=== PATIENT | male | born 1935 | race Caucasian/White ===

== ENCOUNTER → 2016-10-01 | Outpatient (CLI) | payer OTHER | LOC: BMCIMAGING 08:53 | PROVIDERS: ATTEND Orthopaedic Surgery | DX: M25.552 Pain in left hip (principal) ==

== ENCOUNTER 2018-03-03 05:31 | Inpatient (IN) | payer OTHER ==
[2018-03-03] MEDS ORDERED: LR 1,000 ML IV ONE (05:38)
[2018-03-03] MEDS ORDERED: LIDOCAINE 1% 2 ML INJ ID PRN (05:38)
[2018-03-03] MEDS ORDERED: MUPIROCIN 2% 22 GM OINT ONE (06:35)
--- NOTE | 2018-03-03 07:04 | PDANEPAE ---
ANE History of Present Illness right sided parotid tumor, here for resection ANE Past Medical History - Cardiovascular History Hx Hypertension: Yes Hx Arrhythmias: No Hx Chest Pain: No Hx Coronary Artery / Peripheral Vascular Disease: No Hx CHF / Valvular Disease: No Hx Palpitations: No Cardiovascular History Comment: HYPERLIPIDEMIA - Pulmonary History Hx COPD: No Hx Asthma/Reactive Airway Disease: No Hx Recent Upper Respiratory Infection: No Hx Oxygen in Use at Home: No Hx Sleep Apnea: No Sleep Apnea Screening Result - Last Documented: Negative - Neurologic History Hx Cerebrovascular Accident: No Hx Seizures: No Hx Dementia: No - Endocrine History Hx Diabetes: No - Renal History Hx Renal Disorders: No Renal History Comment: KIDNEY STONES IN PAST - Liver History Hx Hepatic Disorders: No - Neurological & Psychiatric Hx Hx Neurological and Psychiatric Disorders: No - Cancer History Hx Cancer: No - Congenital Disorder History Hx Congenital Disorders: No - GI History Hx Gastrointestinal Disorders: Yes Gastrointestinal History Comment: ACID REFLUX - Other Health History Other Health History: NEG - Chronic Pain History Chronic Pain: No - Surgical History Prior Surgeries: 2010 TKA L. TONSILLECTOMY ANE Review of Systems Review of Systems: - Exercise capacity METS (RN): 4 METS ANE Patient History - Allergies Allergies/Adverse Reactions: No Known Allergies Allergy (Unverified 02/24/18 12:38) - Home Medications Home Medications: Amlodipine Besylate/Benazepril 02/24/18 [Last Taken 03/03/18 04:30] Aspirin 02/24/18 [Last Taken 02/24/18] Celebrex 02/24/18 [Last Taken 02/24/18] HCTZ (*) 02/24/18 [Last Taken 02/26/18] Herbals/Supplements -Info Only 02/24/18 [Last Taken 02/24/18] Lovaza 1 gm (*) 02/24/18 [Last Taken 02/26/18] Omeprazole 02/24/18 [Last Taken 03/03/18 04:30] Toprol Xl 02/24/18 [Last Taken 03/03/18 04:30] - NPO status NPO Since - Liquids (Date): 03/03/18 NPO Since - Liquids (Time): 04:55 NPO Since - Solids (Date): 03/02/18 NPO Since - Solids (Time): 21:30 - Smoking Hx Smoking Status: Former smoker - Family Anes Hx Family Hx Anesthesia Complications: NEG ANE Labs/Vital Signs - Vital Signs Blood Pressure: 129/71 Heart Rate: 70 Respiratory Rate: 12 O2 Sat (%): 99 Height: 165.1 cm Weight: 68.039 kg ANE Physical Exam - Airway Neck exam: decreased ROM Mallampati Score: Class 2 Mouth exam: normal dental/mouth exam - Pulmonary Pulmonary: no respiratory distress - Cardiovascular Cardiovascular: regular rate and rhythym - ASA Status ASA Status: III ANE Anesthesia Plan Anesthesia Plan: general endotracheal anesthesia
[2018-03-03] MEDS ORDERED: PROPOFOL 200 MG/20 ML VIAL ONE ×2 (07:07→12:13)
[2018-03-03] MEDS ORDERED: fentaNYL 250 MCG/5 ML INJ ONE (07:07)
[2018-03-03] MEDS ORDERED: RANITIDINE 50 MG/2 ML VIAL ONE (07:07)
[2018-03-03] MEDS ORDERED: ROCURONIUM 50 MG/5 ML VIAL ONE (07:07)
[2018-03-03] MEDS ORDERED: LIDOCAINE 2% 100 MG/5 ML SYR ONE (07:07)
[2018-03-03] MEDS ORDERED: ceFAZolin 2 GM/DEXTROSE 100 ML IV ONE (07:17)
--- NOTE | 2018-03-03 07:17 | PDHPUP ---
History & Physical Update H&P update statement: This history and physical update is based on an assessment of the patient which was completed after admission or registration (within 24 hours), but prior to the surgery/procedure. H&P update: H&P reviewed & patient examined (no change)
[2018-03-03] MEDS ORDERED: CEFAZOLIN 2 GM/DEXTROSE/100 ML BAG IV ONE (07:19)
[2018-03-03] MEDS ORDERED: LIDOCAINE HCL 160 MG/4 ML LTA KIT TP ONE (08:59)
[2018-03-03] MEDS ORDERED: HYDROmorphONE/DILAUDID 2 MG/ML INJ ONE (08:59)
[2018-03-03] MEDS ORDERED: PHENYLEPHRINE HCL 100 MCG/ML SYR ONE (08:59)
[2018-03-03] MEDS ORDERED: GLYCOPYRROLATE 0.2 MG/1 ML VIAL ONE (08:59)
[2018-03-03] MEDS ORDERED: ONDANSETRON 4 MG/2 ML VIAL IVP PRN ×2 (11:42→12:43)
[2018-03-03] MEDS ORDERED: oxyCODONE IR 5 MG TAB PO PRN (11:42)
[2018-03-03] MEDS ORDERED: LABETALOL HCL 5 MG/ML 20 ML MDV IVP PRN (11:42)
[2018-03-03] MEDS ORDERED: MEPERIDINE 25 MG/0.5 ML AMP IVP PRN (11:42)
[2018-03-03] MEDS ORDERED: LR 500 ML IV PRN (11:42)
[2018-03-03] MEDS ORDERED: NALOXONE HCL 0.4 MG/ML INJ IVP PRN (11:42)
[2018-03-03] MEDS ORDERED: fentaNYL 100 MCG/2 ML INJ IVP PRN (11:42)
[2018-03-03] MEDS ORDERED: fentaNYL 100 MCG/2 ML INJ ONE (12:27)
--- NOTE | 2018-03-03 12:43 | POSTOPPROG ---
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
[2018-03-03] MEDS ORDERED: ceFAZolin 0.5 GM in NS 50 ML IV SCH (14:00)
[2018-03-03] MEDS: D5W 1/2 NS W/ 20 KCl/L 1,000 ML IV SCH (14:32)
[2018-03-03] MEDS: ACETAMINOPHEN 325 MG TAB PO PRN (14:32)
[2018-03-03] MEDS: OXYCODONE/APAP 5/325 TAB PO PRN (16:29)
[2018-03-03] MEDS ORDERED: GABAPENTIN 250 MG/5 ML 30 ML BOTTLE PO SCH (21:00)
[2018-03-04] MEDS: D5W 1/2 NS W/ 20 KCl/L 1,000 ML IV SCH (04:01)
[2018-03-04] MEDS: OXYCODONE/APAP 5/325 TAB PO PRN (04:01)
[2018-03-04] MEDS ORDERED: MAGNESIUM HYDROXIDE 30 ML UDCUP PO PRN (06:53)
[2018-03-04] MEDS ORDERED: POLYETHYLENE GLYCOL 3350 17 GM PKT PO PRN (06:53)
[2018-03-04] MEDS ORDERED: BISACODYL 10 MG SUPP PR PRN (06:53)
[2018-03-04] MEDS ORDERED: LACTULOSE 20 GM/30 ML UDCUP PO PRN (06:53)
--- NOTE | 2018-03-04 07:54 | POSTANESTH ---
Post Anesthetic Evaluation Cardiovascular Status: Normal, Stable Respiratory Status: Normal, Stable Level of Consciousness/Mental Status: Can Participate in Eval Pain Control: Adequate, Prn Tx Ordered Nausea/Vomiting Control: Adequate, Prn Tx Ordered Complications Possibly Related to Anesthesia: None Noted (Sen this am in the step down obs unit in ICU. No reported events overnight. Doing well, no complaints. Talkative, no pain or nausea, eating and urinating w/o difficulty. Mild facial swelling on contralateral side. No questions)
[2018-03-04] MEDS: CALCIUM CARBONATE 500 MG TAB PO SCH (09:25)
[2018-03-04] MEDS: AMLODIPINE BESYLATE 5/BENAZEPRIL 10MG 1 EACH CAP PO SCH (09:26)
[2018-03-04] MEDS: METOPROLOL SUCCINATE XR 25 MG TAB PO SCH (09:26)
[2018-03-04] MEDS: HYDROCHLOROTHIAZIDE 12.5 MG CAP PO SCH (09:26)
[2018-03-04] MEDS: SENNOSIDES/DOCUSATE SODIUM TAB PO SCH ×2 (09:26→22:19)
--- NOTE | 2018-03-04 11:01 | ASMTCMCOM ---
CM Note CM Note Notes: Patient is POD #1 R total parotidectomy w FN preservation w alloderm implant. He is doing well. Patient lives alone and is normally independent. He has a stepdaughter that lives very close and another daughter a few hours away. He feels that he will be able to discharge home safely after one more night at [facility]. RN will notify Dr Merida. No CM needs identified. Patient will f/u w Dr Merida in one week. Date Signed: 03/04/2018 11:01 AM Electronically Signed By:Ching Jama RN
--- NOTE | 2018-03-04 14:23 | SOAPPROG ---
SOAP Progress Note Assessment/Plan: Assessment: POD 1 total parotidectomy with alloderm placement on R. Looks great, FN weak but intact. Full eye closure. Still with drain, has some anxiety and some lightheadedness this am. Will keep one more night, candelario d/t BP issues intraop though since has been out of surgery vitals have been stable. Plan: 03/04/18 14:21 Subjective: Doing well, felt a little lightheaded this am, better now. No sig BP/HR issues overnight. Drain put out 50 cc. Objective: AFVSS RA removed Jobst dressing. Incision c/d/i no hematoma/sig edema. FN HB 3. Has full eye closure, weak vickey and frontal Drain in place and stripped Vital Signs Temp Pulse Resp BP Pulse Ox 36.7 C 64 20 123/60 H 96 03/04/18 08:00 03/04/18 12:00 03/04/18 12:00 03/04/18 12:00 03/04/18 12:00 03/03/18 03/04/18 03/05/18 05:59 05:59 05:59 Intake Total 1600 Output Total 576 Balance 1024 ICD10 Worksheet Patient Problems: Problems Problem Status Onset Parotid mass Acute - ICD10 Problem Qualifiers (1) Parotid mass
--- NOTE | 2018-03-04 15:24 | PDMN ---
Medical Necessity Medical necessity: Change to IP, as of 03/04/18, per MD; los >2 mn s/p total parotidectomy w/intraoperative BP issues POD #1 w/drain in place, lightheadedness & anxiety; requiring further monitoring & IVFs; comorbid advanced age, chronic renal insufficiency
[2018-03-04] MEDS ORDERED: BACITRACIN OINTMENT 1 PACKET TP ONE (15:59)
[2018-03-04] MEDS: HYDROGEN PEROXIDE 473 ML BOTTLE TP SCH ×2 (16:03→22:22)
[2018-03-04] MEDS ORDERED: GABAPENTIN 300 MG CAP PO SCH (21:00)
[2018-03-04] MEDS ORDERED: HYDROGEN PEROXIDE 236 ML BOTTLE TP SCH (21:00)
[2018-03-04] MEDS: BACITRACIN OINTMENT 1 PACKET TP SCH (22:23)
[2018-03-05 07:42] VITALS: BP 135/75
[2018-03-05] MEDS: CALCIUM CARBONATE 500 MG TAB PO SCH (09:21)
[2018-03-05] MEDS: METOPROLOL SUCCINATE XR 25 MG TAB PO SCH ×2 (09:21→09:26)
[2018-03-05] MEDS: BACITRACIN OINTMENT 1 PACKET TP SCH (09:22)
[2018-03-05] MEDS: HYDROGEN PEROXIDE 473 ML BOTTLE TP SCH (09:22)
[2018-03-05] MEDS: AMLODIPINE BESYLATE 5/BENAZEPRIL 10MG 1 EACH CAP PO SCH (09:27)
[2018-03-05] MEDS: HYDROCHLOROTHIAZIDE 12.5 MG CAP PO SCH (09:28)
[2018-03-05] MEDS: ACETAMINOPHEN 325 MG TAB PO PRN (09:59)
--- NOTE | 2018-03-05 10:51 | SOAPPROG ---
SOAP Progress Note Assessment/Plan: Assessment: POD 2 total parotidectomy with alloderm placement on R. Looks great, FN weak but intact. Full eye closure. Vitals stable, feeling better about going home. Will keep drain in place until Thursday and will f/u Thursday for removal in clinic. Went over wound care. Plan: 03/04/18 14:21 03/05/18 10:50 Subjective: Doing well, no issues overnight. Less anxiety. Pain controlled and taking po. Has been ambulating Objective: AFVSS RA sutures c/d/i FN HB 2-3 R Drain stripped no fluid build up skin color good Vital Signs Temp Pulse Resp BP Pulse Ox 36.6 C 63 16 135/75 H 96 03/05/18 07:40 03/05/18 07:40 03/05/18 07:40 03/05/18 07:40 03/05/18 07:40 03/04/18 03/05/18 03/06/18 05:59 05:59 05:59 Intake Total 1600 Output Total 576 40 10 [facility] [phone] - Pending Discharge Pending Discharge Within 24 Hours: Yes Pending Discharge Date: 03/06/18 Pending Discharge Time: 11:00 ICD10 Worksheet Patient Problems: Problems Problem Status Onset Parotid mass Acute - ICD10 Problem Qualifiers (1) Parotid mass
--- NOTE | 2018-03-05 11:10 | ASMTLACE ---
LACE Length of stay for Answers: 1 day current admission Acuity / Level of Answers: Yes Care: Did the patient have an inpatient admission? Comorbidities - select Answers: Other Notes: HTN; HLD all that apply # of Emergency department Answers: 0 visits in the last 6 months Score: 5 Date Signed: 03/05/2018 11:09 AM Electronically Signed By:Kamila Mckeon RN
[2018-03-05] MEDS: SENNOSIDES/DOCUSATE SODIUM TAB PO SCH (11:16)
--- NOTE | 2018-03-08 00:36 | GOP ---
DATE OF OPERATION: 03/03/2018 SURGEON: Chantell Merida MD SEISMIC PROSPECTING OBSERVER: Ankit Sosa MD. ANESTHESIA: General. PREOPERATIVE DIAGNOSIS: Right deep lobe parotid mass. POSTOPERATIVE DIAGNOSIS: Right deep lobe parotid mass. PROCEDURE PERFORMED: 1. Right total parotidectomy with facial nerve preservation. 2. AlloDerm implant. 3. Facial nerve monitoring using the [employer] NIM system. FINDINGS: The patient was found to have a fully deep lobe parotid tumor that was about 3 cm. This w as very friable and vascular. On frozen section, the pathology showed an oncocytoma. The facial ner ve was spared and stimulated postoperatively. ESTIMATED BLOOD LOSS: Minimal. INDICATIONS: The patient is a very pleasant 82-year-old man who presented to clinic with right-sided headaches and facial pain. He had multiple other procedures for cervical degenerative disk disease which had not been helpful. A CT neck was done which showed a deep lobe parotid tumor. It was felt that he would benefit from the above procedure. DESCRIPTION OF PROCEDURE: The patient was first seen in the preoperative area where informed consent was obtained. He was then brought back to the operating room where Anesthesia sedated and intubated him. The bed was turned 180 degrees, and he was prepped and draped in sterile fashion. [place] t johnnie-out protocol was performed and then, once we had confirmed the patient and the procedure, we hook ed up the facial nerve monitor on the right side and confirmed that this was monitoring appropriately , which it was. At this point, I marked out a modified Jarett incision and then the incision was made with [place]-tipped Bovie through the skin and subcutaneous tissue as well as in the neck down to t he platysma. Subplatysmal flap was elevated inferiorly. This continued as a sub-SMAS dissection ove r the parotid fascia, taking care to leave the skin flap thickness to decrease the risk of both Jose syndrome as well as devascularization of the flap. Once the flap had been elevated anteriorly to the anterior border of the parotid, [place] hooks were used to retract this back. I dissected slightl y posteriorly, identifying the external jugular vein as well as the greater auricular nerve. The pos terior skin flaps were retracted with Lone star hooks as well. Once this was done, we had visualizat ion of the entire parotid. Sharp as well as blunt dissection were used to release this from the trag al cartilage as well as the surrounding tissue of the musculature. The SCM was delineated, releasing the parotid from on the posterior belly of the digastric. Once this was found, blunt dis section was used in a careful fashion, dissecting along the proposed course of the nerve until the fa cial nerve was found. Once the trunk was found, this was stimulated and it was confirmed to be a fun ctional facial nerve. At this point, a Burlisher was used to gently dissect the superficial over the parotid off the underlying facial nerve, taking care to visualize the nerve at all times. Harmonic scissors were used to clamp, ligate, and divide the superficial parotid tissue above this. Once we c pia to the pes, the superior division was followed first and we continued dissecting the superficial lobe off the underlying facial nerve, taking care to preserve the nerve and remove the lobe. The fro ntal branch and then the zygomatic branch were dissected out and then we went back to where the pes w as, and the inferior division was dissected out binding the zygomatic as well as the marginal mandibu lar branches of the facial nerve. These were dissected out and kept intact. The superficial lobe of the parotid was removed and sent off the field for permanent pathology. The cervical branch was fou nd but was not preserved in the course of removing the superficial lobe of the parotid. At this poin t, a somewhat dark hypervascular and friable lesion was noted in the inferior portion of the deep lob e underneath the inferior division. A small portion of this was removed and sent for frozen section. At this point, the branches were dissected free from the surrounding tissue and underly ing deep lobe parotid. Once this was completely mobilized, gentle retraction was placed on the infer ior division, thereby giving me better access to the deep lobe tumor. Once again, this was very fria ble but I was able to gently sharply and bluntly dissect the tumor from the surrounding tissues. Of note, the external carotid artery was coursing somewhat through this tumor, so care was taken to diss ect this completely and release it, thereby keeping it intact and releasing the tumor from this. Onc e this was completely released and under direct visualization along with the nerve, again some blunt dissection was used to completely release the deepest portion of the tumor and completely pulled infe rior to the inferior division of the nerve, thereby removing it as a whole from our dissection. This was sent off the field for permanent pathology. Once this was done, there was a fairly big defect t hat was sure to cause some cosmetic deformity. It was felt that, in light of this, an AlloDerm impla nt would be beneficial for cosmesis postoperatively, so a medium-sized AlloDerm implant was cut to si ze and then folded in order to fit the wound. At this point, the wound was irrigated out copiously w ith normal saline and suctioned clear. Any small bleeding vessels were cauterized using bipolar caut ceferino. A 10-Macedonian round silicone KO drain was placed and then, exiting the posterior skin flap. This was sutured to the skin using a 3-0 silk. Once this was done, all the Lone star retractors were rel eased. The AlloDerm was placed over the nerve, filling the defect and giving better cosmesis. A 3-0 Vicryl was used to secure the AlloDerm to the underlying parotid fascia as well as the SCM. Once th is was done, the platysma and subcutaneous tissues were closed using 3-0 Vicryl in interrupted fashio n and then the skin was closed using a 5-0 Prolene in a running fashion. At this point, the drain wa s noted to be holding suction. The nerve was able to be stimulated postoperatively. The wound was t hen cleaned and then bacitracin was placed over the incision. At this point, a Jobst face-lift dress ing was placed over some fluffs that were laid over the incision and then placed over the face to giv e some compression overnight. At this point, the patient was turned back over to Anesthesia, where h e was awoken and extubated and taken to PACU in stable condition. There were no complications. He t olerated the procedure well, and instrument and Ray-Markus counts were correct at the end the procedure. The patient did have movement in all facial nerve branches postoperatively, although some of them w ere slightly weak. He did have motion throughout all of them. COMPLICATIONS: None. /[id number]/MODL
== END 2018-03-05 11:53 | disposition home or self-care (01) | DRG 139 ==
LOC: F3E 05:31 → F2N 13:55 → F3E 03-04 14:14 → OBSVTOIN 03-04 15:13
PROVIDERS: ADMIT Otolaryngology; ATTEND Otolaryngology
PROC: 4A1104G Monitoring of Peripheral Nervous Electrical Activity, Intraoperative, Open Approach (ICD-10-PCS; principal; 2018-03-03 07:15)
PROC: 0CT80ZZ Resection of Right Parotid Gland, Open Approach (ICD-10-PCS; principal; 2018-03-03 07:15)
DX: D11.0 Benign neoplasm of parotid gland (principal); I10 Essential (primary) hypertension; E78.5 Hyperlipidemia, unspecified; K21.9 Gastro-esophageal reflux disease without esophagitis; Z23 Encounter for immunization
CPT/HCPCS: G0008; J0690; J1170; J2001; J2370; J2405; J2704; J2780; J3010; Q4116